=== PATIENT | female | born 1955 | race Caucasian/White ===

== ENCOUNTER 2021-11-07 14:28 | Outpatient (CLI) | payer MEDICARE, BC, SELFPAY ==
--- NOTE | 2021-11-07 14:30 | CRLHL7_ITS ---
For Patients: As a result of the Century Cures Act, medical imaging exams and procedure reports are released immediately into your electronic medical record. You may view this report before your referring provider. If you have questions, please contact your health care provider. Indication: Menorrhagia. Technique: MRI of the cervical spine was performed without the use of intravenous contrast. Comparison: None relevant available. Findings: The vertebral body heights are maintained without fracture. No marrow infiltrating process. Straightening with slight reversal of the cervical lordosis. Mild multilevel disc height loss and desiccation, moderate at C5-6 and C6-7. No abnormal cord signal. Incidental empty sella morphology. Cranial cervical junction is intact. C2-3: Central disc protrusion abuts and mildly indents the ventral aspect of the cord. No neural foraminal narrowing. C3-4: Disc osteophyte complex with mild spinal canal narrowing. Mild left and [id number] right neural foraminal narrowing secondary to uncovertebral joint and facet hypertrophy. C4-5: Disc osteophyte complex effaces the ventral thecal sac resulting in mild spinal canal narrowing. Mild indentation upon the ventral cord. Moderate left and mild right neural foraminal narrowing secondary to uncovertebral joint and facet hypertrophy. C5-6: Disc osteophyte complex with mild to moderate spinal canal narrowing. Moderate bilateral neural foraminal narrowing secondary to uncovertebral joint and facet hypertrophy. C6-7: Disc osteophyte complex with superimposed left subarticular disc extrusion. Moderate spinal canal narrowing. Moderately severe left and moderate right neural foraminal narrowing. Potential impingement of the left C7 nerve. C7-T1: No spinal canal or neural foraminal narrowing. Impression: 1. At C6-7, moderate spinal canal narrowing. Left subarticular disc extrusion with potential impingement of the left C7 nerve. 2. At C5-6, mild to moderate spinal canal with moderate bilateral neural foraminal narrowing. At C4-5, mild indentation upon the ventral cord with moderate left and mild right neural foraminal narrowing. 3. At C3-4, mild spinal canal with mild left and [id number] right neural foraminal narrowing. 4. At C2-3, central disc protrusion slightly abuts and mildly indents the ventral cord. 5. No definite abnormal cord signal. Dictated by Julius Bird MD @ 11/07/2021 4:02:29 PM (Electronically Signed)
== END 2021-11-07 14:29 | disposition home or self-care (01) ==
LOC: MRI 14:28
PROVIDERS: PCP Family Medicine; Visit Provider Family Medicine
DX: N92.0 Excessive and frequent menstruation with regular cycle (principal); M50.21 Other cervical disc displacement, high cervical region
CPT/HCPCS: 72141

== ENCOUNTER 2022-03-17 14:14 | Outpatient (CLI) | payer MEDICARE, BC, SELFPAY ==
[2022-03-17 17:57] LABS: SARS PCR* Negative SARS-CoV-2 (Negative)
== END 2022-03-17 14:15 | disposition home or self-care (01) ==
LOC: LONREF 14:15
PROVIDERS: PCP Family Medicine; Visit Provider Family Medicine
DX: Z20.822 Contact with and (suspected) exposure to COVID-19 (principal); R05.9 Cough, unspecified
CPT/HCPCS: 87635

== ENCOUNTER 2022-04-09 10:57 | Outpatient (CLI) | payer MEDICARE, BC, SELFPAY ==
[2022-04-09 15:19] LABS: Albumin* 4.5 g/dL (3.3-5.0); Chloride* 98 mmol/L (96-114)
[2022-04-09 15:20] LABS: Potassium* 4.3 mmol/L (3.6-5.1); Sodium* 135 mmol/L (135-149)
[2022-04-09 15:22] LABS: Carbon Dioxide* 29 mmol/L (20-32); Cholesterol* 226 mg/dL (90-199); Creatinine* 1.2 mg/dL (0.5-1.5); Estimated Glomerular Filt Rate 50 ml/min; Total Protein* 7.2 g/dL (6.0-8.3)
[2022-04-09 15:23] LABS: Alanine Aminotransferase* 33 U/L (4-35); Alkaline Phosphatase* 75 U/L (40-150); Aspartate Amino Transferase* 29 U/L (12-35); Bilirubin Total* 0.8 mg/dL (0.1-1.5); Blood Urea Nitrogen* 18 mg/dL (7-30); Calcium* 9.9 mg/dL (8.4-10.6); Glucose* 104 mg/dL (60-115); HDL Cholesterol* 90 mg/dL (>=50); LDL Cholesterol Calculated 107 mg/dL (<100); Triglycerides* 144 mg/dL (40-149)
== END 2022-04-09 10:58 | disposition home or self-care (01) ==
PROVIDERS: PCP Family Medicine; Visit Provider Nurse Practitioner Family
DX: E78.5 Hyperlipidemia, unspecified (principal); I10 Essential (primary) hypertension
CPT/HCPCS: 80053; 80061

== ENCOUNTER 2022-05-07 11:52 | Outpatient (CLI) | payer MEDICARE, BC, SELFPAY | END 2022-05-07 11:53 | disposition home or self-care (01) | LOC: OP CLINIC 11:54 | PROVIDERS: PCP Family Medicine; Visit Provider Surgery | DX: Z12.11 Encounter for screening for malignant neoplasm of colon (principal); K63.5 Polyp of colon; K62.1 Rectal polyp; Z86.010 Personal history of colon polyps | CPT/HCPCS: 45385; 99153; J1200; J2250; J3010 ==

== ENCOUNTER 2022-06-23 13:55 | Outpatient (CLI) | payer MEDICARE, BC, SELFPAY ==
--- NOTE | 2022-06-23 14:40 | CRLHL7_ITS ---
For Patients: As a result of the Century Cures Act, medical imaging exams and procedure reports are released immediately into your electronic medical record. You may view this report before your referring provider. If you have questions, please contact your health care provider. BILATERAL SCREENING MAMMOGRAM WITH COMPUTER-AIDED DETECTION TECHNIQUE: CC and MLO views were obtained. These mammographic images have been obtained using full-field digital technique. These mammographic images were interpreted with the benefit of computer-aided detection. COMPARISON FILM: 08/30/20, 04/08/18, 03/04/17. FINDINGS: There are scattered areas of fibroglandular density. IMPRESSION: There is no radiographic evidence for malignancy. ASSESSMENT: BI-RADS Category 1: Negative RECOMMENDATION: Routine screening mammogram in 1 year. A lay language report of this examination will be provided to the patient. JEN MENDOZA M.D. Diagnostic/Breast Radiologist [email or web address] Transcribed: 06/24/2022, 2:[address]/Dictated by: Jen Mendoza MD @ 06/24/2022 8:58:00 AM (Electronically Signed)
== END 2022-06-23 13:56 | disposition home or self-care (01) ==
LOC: MAMMO 13:56
PROVIDERS: PCP Family Medicine; Visit Provider Nurse Practitioner Family
DX: Z12.31 Encounter for screening mammogram for malignant neoplasm of breast (principal)
CPT/HCPCS: 77067

== ENCOUNTER 2022-10-16 09:13 | Outpatient (CLI) | payer MEDICARE, BC, SELFPAY | END 2022-10-16 09:14 | disposition home or self-care (01) | PROVIDERS: PCP Family Medicine; Visit Provider Family Medicine | DX: I10 Essential (primary) hypertension (principal); E78.5 Hyperlipidemia, unspecified; E03.9 Hypothyroidism, unspecified | CPT/HCPCS: 80048; 84439; 84443 ==

== ENCOUNTER 2023-04-19 11:25 | Outpatient (CLI) | payer MEDICARE, BC, SELFPAY | END 2023-04-19 11:26 | disposition home or self-care (01) | LOC: NFLDREF 04-20 07:01 | PROVIDERS: PCP Family Medicine; Referring Provider Family Medicine; Visit Provider Family Medicine | DX: R39.9 Unspecified symptoms and signs involving the genitourinary system (principal); E03.9 Hypothyroidism, unspecified; N39.0 Urinary tract infection, site not specified; N30.00 Acute cystitis without hematuria; J06.9 Acute upper respiratory infection, unspecified | CPT/HCPCS: 84443; 87086 ==

== ENCOUNTER 2023-06-16 11:17 | Outpatient (CLI) | payer MEDICARE, BC, SELFPAY | END 2023-06-16 11:18 | disposition home or self-care (01) | PROVIDERS: PCP Family Medicine; Visit Provider Family Medicine | DX: I10 Essential (primary) hypertension (principal); E78.5 Hyperlipidemia, unspecified | CPT/HCPCS: 80048; 80061 ==

== ENCOUNTER 2024-06-16 10:49 | Outpatient (CLI) | payer MEDICARE, BC, SELFPAY | END 2024-06-16 10:50 | disposition home or self-care (01) | PROVIDERS: PCP Family Medicine; Visit Provider Family Medicine | DX: E78.00 Pure hypercholesterolemia, unspecified (principal); I10 Essential (primary) hypertension; E03.9 Hypothyroidism, unspecified | CPT/HCPCS: 80048; 80061; 84443 ==

== ENCOUNTER 2024-07-12 09:39 | Outpatient (CLI) | payer MEDICARE, BC, SELFPAY ==
--- NOTE | 2024-07-12 09:45 | CRLHL7_ITS ---
For Patients: As a result of the Century Cures Act, medical imaging exams and procedure reports are released immediately into your electronic medical record. You may view this report before your referring provider. If you have questions, please contact your health care provider. BILATERAL DIGITAL SCREENING MAMMOGRAM WITH COMPUTER-AIDED DETECTION AND TOMOSYNTHESIS CLINICAL HISTORY: Routine screening exam. COMPARISON: 06/23/22, 08/30/20, 04/08/18 TECHNIQUE: Digital mammogram in CC and MLO projections including computer-aided detection (CAD). Tomosynthesis was used in this interpretation. BREAST COMPOSITION: There are scattered areas of fibroglandular density. FINDINGS: RIGHT Breast: Focal asymmetric density upper outer quadrant 6 cm from the nipple. LEFT Breast: No suspicious findings. IMPRESSION: RIGHT breast asymmetry/mass. RECOMMENDATIONS: Additional mammographic views of the RIGHT breast including 3D spot compression CC/MLO. RIGHT breast ultrasound may also be required. The [facility] will contact the patient. A lay language report of this examination will be provided to the patient. BI-RADS Category 0: Incomplete: Need Additional Imaging Evaluation Dictated by Ismael Rangel MD @ 07/19/2024 12:55:14 PM Dictated by: Ismael Rangel MD @ 07/19/2024 12:55:18 (Electronically Signed)
== END 2024-07-12 09:40 | disposition home or self-care (01) ==
LOC: MAMMO 09:40
PROVIDERS: PCP Family Medicine; Visit Provider Family Medicine
DX: Z12.31 Encounter for screening mammogram for malignant neoplasm of breast (principal); N63.11 Unspecified lump in the right breast, upper outer quadrant
CPT/HCPCS: 77063; 77067

== ENCOUNTER 2024-08-01 10:26 | Outpatient (CLI) | payer MEDICARE, BC, SELFPAY ==
--- NOTE | 2024-08-01 10:45 | CRLHL7_ITS ---
For Patients: As a result of the Cures Act, medical imaging exams and procedure reports are released immediately into your electronic medical record. You may view this report before your referring provider. If you have questions, please contact your health care provider. DIGITAL DIAGNOSTIC RIGHT MAMMOGRAM USING TOMOSYNTHESIS AND COMPUTER-AIDED DETECTION RIGHT BREAST ULTRASOUND CLINICAL HISTORY: RIGHT breast mass/asymmetry. COMPARISON: 07/12/24, 06/23/22, 08/30/20. TECHNIQUE: Digital RIGHT mammogram in two projections. Tomosynthesis and CAD were used in this interpretation. Real-time ultrasound imaging of RIGHT breast with imaging documentation. Scanning was performed by both the technologist and the radiologist. BREAST COMPOSITION: There are scattered areas of fibroglandular density. FINDINGS: 3D spot compression CC/MLO RIGHT breast mammogram images submitted. Persistent suspicious mass with architectural distortion within the lateral RIGHT breast. Targeted RIGHT breast ultrasound at 9 o`clock 6 cm from the nipple performed. In this location, there is a subtle taller than wide hypoechoic solid mass which measures 7 x 5 x 6 millimeters. IMPRESSION: Suspicious nodule RIGHT breast 9 o`clock 6 cm from the nipple measuring 7 x 5 x 6 millimeters. RECOMMENDATIONS: Ultrasound-guided core needle biopsy. A lay language report of this examination will be provided to the patient. BI-RADS Category 4: Suspicious Dictated by Ismael Rangel MD @ 08/01/2024 12:24:54 PM /Dictated by: Ismael Rangel MD @ 08/01/2024 12:24:00 PM (Electronically Signed)
--- NOTE | 2024-08-01 11:15 | CRLHL7_ITS ---
For Patients: As a result of the Cures Act, medical imaging exams and procedure reports are released immediately into your electronic medical record. You may view this report before your referring provider. If you have questions, please contact your health care provider. SEE DIGITAL DIAGNOSTIC RIGHT MAMMOGRAM PERFORMED SAME DAY [email or web address]:[email or web address] sparks/Dictated by: Ismael Rangel MD @ 08/01/2024 12:24:00 PM (Electronically Signed)
== END 2024-08-01 10:27 | disposition home or self-care (01) ==
LOC: MAMMO 10:27
PROVIDERS: PCP Family Medicine; Visit Provider Family Medicine
DX: N63.10 Unspecified lump in the right breast, unspecified quadrant (principal); R92.8 Other abnormal and inconclusive findings on diagnostic imaging of breast
CPT/HCPCS: 76642; 77065; G0279

== ENCOUNTER 2024-08-10 07:55 | Outpatient (CLI) | payer MEDICARE, BC, SELFPAY ==
--- NOTE | 2024-08-10 08:15 | CRLHL7_ITS ---
For Patients: As a result of the Century Cures Act, medical imaging exams and procedure reports are released immediately into your electronic medical record. You may view this report before your referring provider. If you have questions, please contact your health care provider. ULTRASOUND-GUIDED BREAST BIOPSY AND POST-BIOPSY DIGITAL MAMMOGRAM FOR BIOPSY MARKER PLACEMENT CLINICAL HISTORY: Indeterminate lesion. COMPARISON STUDIES: 08/01/2024, 07/12/2024. TECHNIQUE: Real-time ultrasound with image documentation was used for targeting the breast lesion. Core biopsy specimens were obtained using an automated gun with a 16-gauge biopsy needle. Post-biopsy CC and ML digital mammograms were obtained to document position of the biopsy marker. CONSENT and TIME OUT: The procedure, risks, and alternatives were explained to the patient and a consent was signed. [place] Protocol was followed including pre-procedure verification that relevant information/documentation was available, reviewed and properly matched to the patient; consent accurate and complete; and equipment and supplies available. Time Out was conducted just prior to starting procedure to verify the four required elements: patient identity, correct side/site marked (if applicable), procedure, relevant images/results properly labeled and displayed (if applicable). PROCEDURE: The patient was positioned supine on the ultrasound table. The breast was prepped with ChloraPrep. 8 cc of 1 percent lidocaine used for local anesthesia. Core samples were obtained. A sterile metal biopsy clip was placed percutaneously to sami the lesion position within the breast. The specimens were placed in 10% formalin and sent to the pathology department. Pressure was held on the biopsy site until all bleeding subsided. The skin incision was closed with Steri-Strips. An ice pack was positioned over the biopsy site. Post-biopsy instructions were reviewed with the patient, and a written copy was given to her. LATERALITY: RIGHT breast. LESION: Hypoechoic irregular solid nodule measuring 7 x 5 x 6 millimeters at 9 o`clock 6 cm from the nipple. SUSPICION FOR MALIGNANCY: High. NUMBER OF SAMPLES: 6. BIOPSY CLIP SHAPE: Oval. PROXIMITY OF CLIP TO TARGET: Immediately adjacent to the lesion. IMPRESSION: Ultrasound-guided breast biopsy. When the pathology report is available, an addendum to this report will be made. ACR not applicable Dictated by Ismael Rangel MD @ 08/10/2024 9:20:36 AM jj/Dictated by: Ismael Rangel MD @ 08/10/2024 9:20:00 AM (Electronically Signed)
--- NOTE | 2024-08-10 09:00 | CRLHL7_ITS ---
For Patients: As a result of the Cures Act, medical imaging exams and procedure reports are released immediately into your electronic medical record. You may view this report before your referring provider. If you have questions, please contact your health care provider. SEE ULTRASOUND-GUIDED RIGHT BREAST BIOPSY PERFORMED SAME DAY [email or web address]:bridger sparks/Dictated by: Ismael Rangel MD @ 08/10/2024 9:20:00 AM (Electronically Signed)
== END 2024-08-10 07:56 | disposition home or self-care (01) ==
LOC: US 07:57
PROVIDERS: PCP Family Medicine; Visit Provider Family Medicine
DX: N63.10 Unspecified lump in the right breast, unspecified quadrant (principal); C50.911 Malignant neoplasm of unspecified site of right female breast; R92.8 Other abnormal and inconclusive findings on diagnostic imaging of breast
CPT/HCPCS: 19083; 77065; 88305; 88341; 88342; 88360; 88361; A4648; A4649

== ENCOUNTER 2024-08-23 07:57 | Outpatient (CLI) | payer MEDICARE, BC, SELFPAY ==
--- NOTE | 2024-08-23 08:15 | CRLHL7_ITS ---
For Patients: As a result of the Century Cures Act, medical imaging exams and procedure reports are released immediately into your electronic medical record. You may view this report before your referring provider. If you have questions, please contact your health care provider. Indication: AXILLARY STAGING WITH RIGHT BREAST CANCER Technique: Grayscale and color Doppler ultrasound of the right axilla performed. Comparison: 08/10/2024 mammogram Findings: Normal right axillary lymph nodes are noted with normal central fatty nurys and normal internal vascularity. No cortical thickening. Lymph nodes measure 3.0 x 0.8 x 2.2 cm and 3.0 x 1.1 x 1.7 cm. The cortex measures less than 1 millimeter. Impression: Normal morphology of right axillary lymph nodes. No suspicious findings. Dictated by Ismael Rangel MD @ 08/23/2024 9:19:31 AM (Electronically Signed)
== END 2024-08-23 07:58 | disposition home or self-care (01) ==
LOC: US 07:58
PROVIDERS: PCP Family Medicine; Visit Provider Surgery
DX: C50.919 Malignant neoplasm of unspecified site of unspecified female breast (principal); D48.7 Neoplasm of uncertain behavior of other specified sites
CPT/HCPCS: 76882

== ENCOUNTER 2024-09-07 06:50 | Day surgery (SDC) | payer MEDICARE, BC, SELFPAY ==
[2024-09-07] VITALS (7 sets, daily range): BP systolic 124–142; BP diastolic 79–87; PULSE 58–78; RESP 16; TEMP 36.3–37; O2SAT 98; BMI 34.5
[2024-09-07] MEDS: LACTATED RINGERS 1000 ML 1,000 ML 100 ML IV (07:15)
[2024-09-07] MEDS: SODIUM CHLORIDE 0.9 % (FLUSH) 10 ML SYRINGE IVF (08:04)
--- NOTE | 2024-09-07 08:15 | CRLHL7_ITS ---
For Patients: As a result of the Cures Act, medical imaging exams and procedure reports are released immediately into your electronic medical record. You may view this report before your referring provider. If you have questions, please contact your health care provider. RIGHT BREAST WIRE LOCALIZATION USING ULTRASOUND GUIDANCE CLINICAL HISTORY: RIGHT breast cancer LATERALITY: RIGHT breast LESION: Hypoechoic solid lesion measuring 7 x 5 x 6 mm at 9 o`clock, 6 cm from the nipple LOCALIZATION WIRE: [place] hookwire. TECHNIQUE: The localization wire was placed using real-time ultrasound guidance with image documentation. Cranial-caudal and medial-lateral digital mammograms were obtained after localization wire placement. CONSENT and TIME OUT: The procedure, risks, and alternatives were explained to the patient and a consent was signed. [place] Protocol was followed including pre-procedure verification that relevant information/documentation was available, reviewed and properly matched to the patient; consent accurate and complete; and equipment and supplies available. Time Out was conducted just prior to starting procedure to verify the four required elements: patient identity, correct side/site marked (if applicable), procedure, relevant images/results properly labeled and displayed (if applicable). PROCEDURE: The skin was prepped with ChloraPrep and 6 cc of 1% lidocaine was injected for local anesthesia. The localization wire was placed within or near the targeted breast lesion using ultrasound guidance. The patient tolerated the procedure well. PROXIMITY OF WIRE TO LESION: Wire is present within the lesion adjacent to the clip. IMPRESSION: Successful RIGHT breast wire localization. ACR not applicable Dictated by Ismael Rangel MD @ 09/07/2024 12:23:21 PM CRL:trish RD/Dictated by: Ismael Rangel MD @ 09/07/2024 12:23:00 PM (Electronically Signed)
--- NOTE | 2024-09-07 08:53 | W.PM.H&PU ---
History & Physical Update History & Physical Update H&P Reviewed and patient assessed: No changes noted
--- NOTE | 2024-09-07 09:00 | CRLHL7_ITS ---
For Patients: As a result of the Cures Act, medical imaging exams and procedure reports are released immediately into your electronic medical record. You may view this report before your referring provider. If you have questions, please contact your health care provider. RIGHT POST-WIRE MAMMOGRAM 2 VIEWS CLINICAL HISTORY: RIGHT breast cancer. COMPARISON: 08/01/2024 FINDINGS: Two views of the RIGHT breast specimen submitted. The specimen contains the biopsied mass, the biopsy clip and the localization wire. IMPRESSION: Specimen contains the biopsied lesion, the biopsy clip and the localization wire. ACR not applicable. Dictated by: Ismael Rangel MD @09/07/2024 12:22:01 PM CRL:trish RD/Dictated by: Ismael Rangel MD @ 09/07/2024 12:23:00 PM (Electronically Signed)
--- NOTE | 2024-09-07 09:00 | CRLHL7_ITS ---
For Patients: As a result of the Cures Act, medical imaging exams and procedure reports are released immediately into your electronic medical record. You may view this report before your referring provider. If you have questions, please contact your health care provider. RIGHT BREAST SPECIMEN RADIOGRAPH CLINICAL HISTORY: RIGHT breast cancer COMPARISON: 08/01/2024 FINDINGS: Two views of the RIGHT breast specimen submitted. The specimen contains the biopsied mass, the biopsy clip and the localization wire. IMPRESSION: Specimen contains the biopsied lesion, the biopsy clip and the localization wire. ACR not applicable. Dictated by Ismael Rangel MD @ 09/07/2024 12:22:02 PM CRL:trish RD/Dictated by: Ismael Rangel MD @ 09/07/2024 12:22:00 PM (Electronically Signed)
[2024-09-07] MEDS: CEFAZOLIN 1 GM inj IVP (09:24)
--- NOTE | 2024-09-07 09:43 | P.ANES_ITS ---
Anesthesia Charges Start Date/Time Anesthesia Start Date: 09/07/24 Anesthesia Start Time: 09:12 Stop Date/Time Anesthesia Stop Date: 09/07/24 Anesthesia Stop Time: 10:30 Coding CPT Codes CPT Codes: ANESTH SKIN EXT/PER/ATRUNK - 63733 ([id number]) P2 - PATIENT W/MILD SYST DISEASE, QK - LINE APPLIANCE ASSEMBLER 2-4 CNCRNT ANES PROC, QX - MATERIAL REQUISITIONER SVC W/ MD MED DIRECTION
--- NOTE | 2024-09-07 09:43 | W.ANESCHARGE ---
Anesthesia Charges Start Date/Time Anesthesia Start Date: 09/07/24 Anesthesia Start Time: 09:12 Stop Date/Time Anesthesia Stop Date: 09/07/24 Anesthesia Stop Time: 10:30 Coding CPT Codes CPT Codes: ANESTH SKIN EXT/PER/ATRUNK - 32500 ([id number]) P2 - PATIENT W/MILD SYST DISEASE, QK - HOUSEPERSON 2-4 CNCRNT ANES PROC, QX - INSURANCE ACCOUNT ASSISTANT SVC W/ MD MED DIRECTION
[2024-09-07] MEDS: LIDOCAINE 1% MDV 20 ML INJECTION (10:01)
[2024-09-07] MEDS: BUPIVACAINE 0.25% 30 ML INJECTION (10:01)
--- NOTE | 2024-09-07 10:15 | P.GSOP_ITS ---
Operative Note Date of procedure: 09/07/24 Pre-op diagnosis: Invasive ductal carcinoma, right breast Post-op diagnosis: same Type of Procedure: lumpectomy of right breast Indications: Patient is a 69-year-old female who presented to clinic with a new diagnosis stage I invasive ductal carcinoma. Different treatment options were discussed based off of NCCN guidelines, please see consultation note for full discussion. Risks and benefits of operative intervention were discussed at length with the patient. Risks included but was not limited to: Bleeding, infection, risk of damage to surrounding structures, possible need for additional procedures and postoperative complications such as pneumonia, pulmonary emboli or ND. All ques tions and concerns were addressed with the patient agreeing to proceed. Procedure Description: Prior to arrival in the operating room, the patient was taken to radiology where a wire was placed to localize the previously placed clip. After discussing the risks and benefits of the procedure, the patient signed informed consent.? The operative site was marked and the patient was brought to the operating room and placed on the operating table in supine position.? Care was taken to pad the patient's pressure points.?? The patient was then given sed ation by anesthesia.?? The operative site was then prepped and draped in the usual sterile fashion.? A time-out was then performed. The right breast and axilla were prepped and draped in the usual sterile fashion. Timeout was confirmed. Local anesthesia was infiltrated into a transverse incision at the 9 o'clock position near the location of the tip of the wire. Using electrocautery, the segment of breast tissue containing the tip of the wire was excised. This was sent for evaluation. Radiology called back and confirmed that the clip and wire were present within the specimen. Pathology then called back and confirmed that the margins were appropriate. The wound was irrigated and all irrigant suctioned from the wound. Additional local anesthesia was infiltrated. The wound was then closed in layers using absorbable suture, and a Steri-Strip was placed over the wound. An RIRI wrap was applied for compression. The patient was awakened without incident and taken to PACU in stable condition. Sponge, needle and instrument counts were correct x3 at the termination of the case. Findings: Wire localized right breast tumor. Margins negative. Anesthesia: MAC and local Surgeon: Sarah Vogel MD Estimated blood loss (mL): 5 Additional Specimen Information: Right breast mass Condition: stable Disposition: PACU
--- NOTE | 2024-09-07 10:35 | P.ANES_ITS ---
Anesthesia Charges Start Date/Time Anesthesia Start Date: 09/07/24 Anesthesia Start Time: 09:12 Stop Date/Time Anesthesia Stop Date: 09/07/24 Anesthesia Stop Time: 10:30 Coding CPT Codes CPT Codes: ANESTH SKIN EXT/PER/ATRUNK - 79632 ([id number]) P2 - PATIENT W/MILD SYST DISEASE, QK - HOTEL BREAKFAST ATTENDANT 2-4 CNCRNT ANES PROC, QX - HOSPITAL CLEANING SPECIALIST SVC W/ MD MED DIRECTION
--- NOTE | 2024-09-07 10:35 | W.ANESCHARGE ---
Anesthesia Charges Start Date/Time Anesthesia Start Date: 09/07/24 Anesthesia Start Time: 09:12 Stop Date/Time Anesthesia Stop Date: 09/07/24 Anesthesia Stop Time: 10:30 Coding CPT Codes CPT Codes: ANESTH SKIN EXT/PER/ATRUNK - 36395 ([id number]) P2 - PATIENT W/MILD SYST DISEASE, QK - SUPERVISOR SPECIAL EFFECTS 2-4 CNCRNT ANES PROC, QX - INTERVENTIONAL SALE CONSULTANT SVC W/ MD MED DIRECTION
== END 2024-09-07 12:00 | disposition home or self-care (01) ==
LOC: OR 06:53
PROVIDERS: PCP Family Medicine; Visit Provider Surgery
PROC: (CPT 19125; principal; 2024-09-07 09:00)
DX: C50.811 Malignant neoplasm of overlapping sites of right female breast (principal); Z17.0 Estrogen receptor positive status [ER+]; Z17.21 Progesterone receptor positive status; Z17.32 Human epidermal growth factor receptor 2 negative status
CPT/HCPCS: 19125; 00400; 19285; 76942; 77065; 88307; 88341; 88342; J2003; C1769; J0665; J0690; J1100; J2250; J2405; J2704; J3010; J3490; J7120

== ENCOUNTER 2024-10-12 13:44 | Outpatient (CLI) | payer MEDICARE, BC, SELFPAY ==
--- NOTE | 2024-10-12 14:00 | CRLHL7_ITS ---
For Patients: As a result of the Century Cures Act, medical imaging exams and procedure reports are released immediately into your electronic medical record. You may view this report before your referring provider. If you have questions, please contact your health care provider. XR DXA BONE MINERAL DENSITY (BMD) Current height (in): 64.0. Weight (lb): 200.0. Menopause age: 45. Ethnicity: White. Reason for exam: shelter ( current ) use of aromatase inhibitors. 1. Have you had a previous hip or vertebral fracture? No. 2. Have you had any fractures during your adult life which did not result from significant trauma (e.g., auto accident)? No. 3. Did either of your parents have a hip fracture? No. 4. Do you smoke? No. 5. Have you ever taken Glucocorticoids? No. 6. Do you have rheumatoid arthritis? No. 7. Do you have secondary osteoporosis? No. 8. Do you drink 3 or more alcoholic drinks per day? No. 9. Are you being treated for osteoporosis? No. 10. Have you ever taken any of the following medications: Actonel, Evista, Fosamax, Miacalcin, Reclast, Boniva, Forteo, HRT (i.e. estrogen/hormone therapy), Protelos, Prolia, Vitamin D, Calcium, other ??? please specify. ANSWER: Yes, vitamin D, calcium. 11. Do you have any of the following medical conditions: Anorexia or bulimia, asthma or emphysema, end stage renal disease, hyperparathyroidism, any seizure disorders, cancer, inflammatory bowel diseases, hysterectomy, other ??? please specify. ANSWER: Yes, breast cancer. 12. What was your maximum height (inches)? 64. 13. Do you perform weight bearing exercise regularly? No. 14. Do you regularly consume dairy products? Yes. 15. Do you drink caffeinated beverages? No. 16. At what age did your period start? 15. 17. Are you premenopausal? No. 18. How many full-term pregnancies have you had? 3. 19. Have you ever missed your period for more than 6 months in a row (not including or menopause)? No. TECHNIQUE: Bone mineral density study was performed using the [employer]. FINDINGS: The results of the study expressed as bone mineral density (BMD) are as follows: Lumbar spine L1 to L4: BMD: 1.228 g/cm2. T-score: 1.6. Z-score: 3.7 Neck Left: BMD: 0.761 g/cm2. T-score: -0.8. Z-score: 1.0 Right: BMD: 0.730 g/cm2. T-score: -1.1. Z-score: 0.7 Total Left: BMD: 1.121 g/cm2. T-score: 1.5. Z-score: 2.9 Right: BMD: 1.105 g/cm2. T-score: 1.3. Z-score: 2.8 IMPRESSION: Osteopenia. FRAX 10-year Fracture Risk Major Osteoporotic Fracture: <0.1 percent Hip Fracture: <0.1 percent Reported Risk Factors: [place] () Neck BMD = 0.730, BMI = 34.3 Ismael Rangel M.D. Diagnostic Radiologist [email or web address] Transcribed: 3:40 pm DW/Dictated by: Ismael Rangel MD @ 10/12/2024 3:17:00 PM (Electronically Signed)
== END 2024-10-12 13:45 | disposition home or self-care (01) ==
LOC: RAD 13:45
PROVIDERS: PCP Family Medicine; Visit Provider Internal Medicine Hematology & Oncology
DX: C50.911 Malignant neoplasm of unspecified site of right female breast (principal); M85.89 Other specified disorders of bone density and structure, multiple sites; Z79.811 Long term (current) use of aromatase inhibitors
CPT/HCPCS: 77080

== ENCOUNTER 2025-01-09 09:00 | Outpatient (RCR) | payer MEDICARE, BC, SELFPAY | END 2025-03-20 23:59 | disposition home or self-care (01) | LOC: CCIC 09:00 | PROVIDERS: PCP Family Medicine; Visit Provider Internal Medicine Hematology & Oncology | DX: C50.911 Malignant neoplasm of unspecified site of right female breast (principal); Z17.0 Estrogen receptor positive status [ER+]; Z79.811 Long term (current) use of aromatase inhibitors; M85.80 Other specified disorders of bone density and structure, unspecified site | CPT/HCPCS: 99202; 99204; 99214; 99215; G0463 ==